=== PATIENT | female | born 1945 | race Caucasian/White ===

== ENCOUNTER 2017-11-16 07:58 | Day surgery (SDC) | payer OTHER, BC ==
[2017-11-14 16:37] VITALS: BMI 24.0
--- NOTE | 2017-11-16 08:42 | HP ---
Satellite [facility] - Chief Complaint Chief Complaint: right elbow pain, drainage - Past Medical History Allergies/Adverse Reactions: Allergies Allergy/AdvReac Type Severity Reaction Status Date / Time erythromycin base Allergy Verified 11/14/17 16:40 Sulfa (Sulfonamide Allergy Verified 11/14/17 16:40 Antibiotics) prednisolone AdvReac Verified 11/14/17 16:40 TOMATO Allergy Severe Swelling Uncoded 11/14/17 16:40 Cardiovascular: Yes: HTN Gastrointestinal: Yes: Diverticulosis Heme/Onc: Yes: Anemia Endocrine: Yes: Hypothyroidism (neck and back surgery with spinal fusion) - Current Medications Current Medications: Home Medications Medication Instructions Recorded Ascorbic Acid [Vitamin C] 500 mg PO DAILY 04/09/15 Ferric Sulfate 1 tab MC DAILY 04/09/15 Levothyroxine [Synthroid -] 75 mcg PO DAILY 04/09/15 Multivitamins [Multivit ([facility] 1 tab PO DAILY 04/09/15 Formulary)] Olmesartan Medoxomil [Benicar -] 20 mg PO DAILY 04/09/15 Ibuprofen [Advil -] 200 mg PO PRN PRN 06/17/16 Aspirin [Aspirin EC] 81 mg PO ASDIR 11/14/17 Hydrocodone/Acetaminophen [[place] 1 each PO Q6H PRN #20 tablet MDD 4 11/16/17 5-325 Tablet] Satellite Physical Exam - Physical Examination General Appearance: Well Nourished, Well Developed, Alert & Oriented x3 ENT: Clear Lung: Normal air movement Heart: Regular rate & rhythm Extremities: Other (right elbow- + olecranon bursitis with drainage (chronic), full rom, nvi) Neurological: Intact, Alert, Oriented Satellite Impression/Plan - Impression/Plan Impression: right olecranon bursitis- chronic Operative Procedure: right olecranon bursectomy Date to be Performed: 11/16/17
[2017-11-16] MEDS ORDERED: LIDOCAINE HCL/PF 2% SDV 5ML VIAL ONE (11:12)
[2017-11-16] MEDS ORDERED: PROPOFOL 20 ML ONE (11:12)
[2017-11-16] MEDS ORDERED: ceFAZolin SODIUM 1 GM VIAL ONE (11:14)
[2017-11-16] MEDS ORDERED: ONDANSETRON 4 MG/2 ML VIAL ONE (11:14)
[2017-11-16] MEDS ORDERED: ceFAZolin SODIUM 1 GM VIAL IVPB ONE (11:14)
[2017-11-16] MEDS ORDERED: SUCCINYLCHOLINE CHLORIDE 200 MG/10 ML VIAL ONE (11:30)
[2017-11-16] MEDS ORDERED: ePHEDrine SULFATE 50 MG/1 ML AMPULE ONE (11:34)
--- NOTE | 2017-11-16 11:52 | OP ---
Operative Note - Note: Operative Date: 11/16/17 ([facility]) Pre-Operative Diagnosis: right chronic infected olecranon bursa Operation: right olecranon bursectomy Post-Operative Diagnosis: Same as Pre-op Surgeon: Brown Chen Housekeeping Manager: Scooby Nelson Anesthesiologist/TECHNOLOGY ADMINISTRATOR: Solomon Salvador Anesthesia: General, Local Specimens Removed: bursa Estimated Blood Loss (mls): 0 (tourniquet) Operative Report Dictated: Yes
[2017-11-16] MEDS ORDERED: oxyCODONE HCL 5 MG TABLET PO PRN (11:56)
[2017-11-16] MEDS ORDERED: ONDANSETRON 4 MG/2 ML VIAL IVPUSH PRN (11:56)
[2017-11-16] MEDS ORDERED: LACTATED RINGERS SOLUTION 1,000 ML IV SCH (12:00)
--- NOTE | 2017-11-16 12:09 | OP ---
DATE OF OPERATION: PREOPERATIVE DIAGNOSIS: Right elbow chronic and infected left bursa sinus tract. POSTOPERATIVE DIAGNOSIS: Right elbow chronic and infected left bursa sinus tract. PROCEDURE: Right elbow olecranon bursectomy and sinus tract excision. SURGEON: Indy Menendez MD WAXING MACHINE OPERATOR HELPER: ANALISA Amaya ANESTHESIA: Tobi Salvador MD, deep MAC anesthesia with local injection of 10 mL of 0.5% Marcaine with lidocaine. DRAINS: None. COMPLICATIONS: None. SPECIMENS: Right olecranon bursa and sinus tract, right elbow. BLOOD LOSS: None. BLOOD GIVEN: None. FLUID REPLACEMENT: 500 mL. INDICATIONS: This patient is a 72-year-old female with a preoperative diagnosis of a right elbow chronically infected olecranon bursa and chronically draining sinus tract. After understanding the potential risks, complications, alternatives, benefits to surgery versus nonsurgical treatment, the patient elected to undergo this procedure. The patient does understand that there is a risk of the sinus tract returning and she will regrow her right elbow olecranon bursa. DESCRIPTION OF PROCEDURE: The patient was brought to the operating room. Peripheral IV place. IV sedation given. Then 1 g of IV Ancef given. The right upper extremity was prepped and draped in the usual sterile fashion. She was placed into the sloppy lateral position. The right upper extremity is elevated, exsanguinated with an Esmarch bandage. Tourniquet inflated to 250 mmHg. A longitudinal incision was marked out with a marking pen including making an oval-shaped incision around the chronically draining sinus tract. Then 10 mL of 0.5% Marcaine and 1% lidocaine was injected in and around the surgical incision. An incision was made with a No. 15 scalpel blade including taking out an ellipse of skin around the sinus tract. I traced the sinus tract down to the olecranon bursa. It was excised in its entirety (the sinus tract and the bursa). Circumferential dissection was done around the bursa doing a full bursectomy. There was no pus. Overall, it was underwhelming, but there was a bursa with chronic scar tissue. The area was copiously irrigated and washed out. The patient did not have a bony olecranon spur. There was no abnormal tissue that I could see. The tissue was irrigated and washed out again. Closure was done with 4-0 undyed Vicryl in the deep dermal layer, and final skin reapproximation was done with the saurabh. The olecranon bursa and the sinus tract was passed off the field as specimen. The area was then washed and dried. Gordon were applied. Xeroform gauze, 4 x 4's, Webril, and a posterior 5-inch Ortho-Glass splint was applied immobilizing the elbow. It was wrapped with a Andrew and Coban. Tourniquet was taken down after a total tourniquet time of 25 minutes. There were no complications during the case. The patient tolerated the procedure well and was brought to the ambulatory recovery room in stable condition. INDY MENENDEZ M.D. [id number]
[2017-11-16 12:43] VITALS: TEMP 98
[2017-11-16 14:55] VITALS: BP 114/66; PULSE 84
--- NOTE | 2017-11-17 16:09 | PATH ---
Surgical Pathology Report Patient Name: JULISSA CHAVIRA [facility]. Rec. #: [id number] /Age/Gender: 1945 (Age: 72) / F Account: [id number] Location: [facility] SURGICAL Taken: 11/15/2017 Received: 11/16/2017 Reported: 11/17/2017 Physicians: Brown Chen M.D. Specimen(s) Received INFECTED OLECRANON BURSA Clinical History Infected right olecranon bursa Final Diagnosis OLECRANON BURSA, EXCISION: BENIGN DENSE FIBROCONNECTIVE TISSUE WITH FOCAL CHRONIC INFLAMMATION AND DYSTROPHIC CALCIFICATION. Electronically Signed Annalise Harris M.D. Gross Description Received in formalin labeled "infected olecranon bursa," is a 3.2 x 2.2 x 0.3 cm aggregate of guadarrama-yellow, irregular soft tissue fragments. The specimen is entirely submitted in one cassette. 11/16/2017 [facility]
== END 2017-11-16 14:55 | disposition home or self-care (01) ==
LOC: JASU-SURG 07:58
PROVIDERS: ATTEND Orthopaedic Surgery
PROC: 0MB30ZZ Excision of Right Elbow Bursa and Ligament, Open Approach (ICD-10-PCS; principal; 2017-11-16 09:30)
DX: M71.121 Other infective bursitis, right elbow (principal)
CPT/HCPCS: 88304-TC; 94760

== ENCOUNTER 2018-01-04 05:03 | Day surgery (SDC) | payer OTHER, BC ==
[2017-12-29 13:55] VITALS: BMI 24.6
--- NOTE | 2018-01-04 09:02 | HP ---
Satellite [facility] - Chief Complaint Chief Complaint: recurrent infection right elbow and hand History of Present Illness: recurrent infection right elbow and hand History Source: Patient Limitations to Obtaining History: No Limitations - Past Medical History Allergies/Adverse Reactions: Allergies Allergy/AdvReac Type Severity Reaction Status Date / Time Sulfa (Sulfonamide Allergy Intermediate Rash Verified 01/02/18 18:39 Antibiotics) erythromycin base Allergy Unknown Verified 01/02/18 18:39 prednisolone AdvReac Intermediate Verified 01/02/18 18:39 TOMATO Allergy Severe Swelling Uncoded 01/02/18 18:39 Cardiovascular: Yes: HTN Gastrointestinal: Yes: Diverticulosis Heme/Onc: Yes: Anemia Endocrine: Yes: Hypothyroidism (neck and back surgery with spinal fusion) - Current Medications Current Medications: Home Medications Medication Instructions Recorded Ascorbic Acid [Vitamin C] 500 mg PO DAILY 04/09/15 Levothyroxine [Synthroid -] 75 mcg PO DAILY 04/09/15 Olmesartan Medoxomil [Benicar -] 20 mg PO DAILY 04/09/15 Ibuprofen [Advil -] 200 mg PO PRN PRN 06/17/16 Aspirin [Aspirin EC] 81 mg PO ASDIR 11/14/17 Ferrous Sulfate [Feosol] 325 mg PO DAILY 12/29/17 Lactobacillus Rhamnosus R0011 1 each PO DAILY 12/29/17 [Probiotic Digestive Care] Satellite Physical Exam - Physical Examination General Appearance: Well Nourished ENT: Clear Lung: Clear to auscultation Heart: Regular rate & rhythm Breasts: Soft Abdomen: Soft Extremities: No edema Satellite Impression/Plan - Impression/Plan Impression: recurrent infection right elbow and hand Operative Procedure: open I and D and wound closure right elbow and hand Date to be Performed: 01/04/18
[2018-01-04] MEDS ORDERED: ONDANSETRON 4 MG/2 ML VIAL IVPUSH PRN (09:12)
[2018-01-04] MEDS ORDERED: oxyCODONE HCL 5 MG TABLET PO PRN ×2 (09:12)
[2018-01-04] MEDS ORDERED: LACTATED RINGERS SOLUTION 1,000 ML IV SCH (09:15)
[2018-01-04] MEDS ORDERED: MIDAZOLAM HCL 2 MG/2 ML SINGLE DOSE VIAL ONE ×2 (10:02→11:18)
[2018-01-04] MEDS ORDERED: BUPIVACAINE HCL/PF 0.5% (5MG/ML) 10 ML VIAL ONE (11:28)
[2018-01-04] MEDS ORDERED: LIDOCAINE HCL 1%, 10 MG/ML (20ML VIAL) ONE (11:28)
[2018-01-04] MEDS ORDERED: ceFAZolin SODIUM 1 GM VIAL IVPB ONE (11:30)
[2018-01-04] MEDS ORDERED: BUPIVACAINE HCL/PF (5 MG/ML) 30 ML VIAL IJ ONE (11:35)
[2018-01-04] MEDS ORDERED: LIDOCAINE HCL 1%, 10 MG/ML (20ML VIAL) INF ONE (11:35)
[2018-01-04] MEDS ORDERED: BACITRACIN 50,000 UNITS VIAL IM ONE (11:47)
--- NOTE | 2018-01-04 12:34 | OP ---
Operative Note - Note: Operative Date: 01/04/18 Pre-Operative Diagnosis: right hand and elbow chronic infection, poor wound healing, right hand mass Operation: right hand excision of mass,hand open I & D, and elbow open I & D and elbow wound closure Post-Operative Diagnosis: Same as Pre-op Surgeon: Brown Chen Anesthesiologist/ROTOR WINDER: Zachary Brand Anesthesia: General, MAC Specimens Removed: right hand mass, soft tissue, and culture. right elbow soft tissue, and culture Estimated Blood Loss (mls): 0 Drains & Tubes with Location: 0 Drains, Volume Out (mls): 0 Blood Volume Replaced (mls): 0 Fluid Volume Replaced (mls): 500 Operative Report Dictated: Yes
[2018-01-04 12:54] VITALS: TEMP 97.4
--- NOTE | 2018-01-04 13:01 | OP ---
DATE OF OPERATION: 01/04/2018 PREOPERATIVE DIAGNOSIS: Right hand recurrent infection and right elbow recurrent infection and poor wound closure. POSTOPERATIVE DIAGNOSIS: Right hand recurrent infection and right elbow recurrent infection and poor wound closure. PROCEDURE: Right hand open incision and drainage and right elbow open incision and drainage and wound closure. SURGEON: Indy Menendez MD TREASURY ASSOCIATE: None. ANESTHESIA: Zachary Brand CRNA DRAINS: None. COMPLICATIONS: None. SPECIMENS: Times 4. 1. Right hand wound culture. 2. Right hand tissue sent for culture and pathology. 3. Right elbow wound culture. 4. Right elbow soft tissue sent for culture. INDICATIONS: This patient is a 72-year-old female with preoperative diagnosis of poor wound healing, chronic infection in the right hand, chronic elbow infection, and poor wound closure. The patient did tell me recently that she was told many years ago that she had a connective tissue disorder, but it was never fully diagnosed. It does not have a name. In addition, interestingly, the anesthesiologist told me during the case he had a very hard time finding a peripheral O2 saturation registration. He feels that she has very poor distal vascular supply. He had to use her ear in order to get any type of reading. DESCRIPTION OF PROCEDURE: The patient was brought to the operating room. Peripheral IV placed. IV sedation given. She was given 2 g of IV Ancef MAC anesthesia. The right upper extremity was prepped and draped in sterile fashion. Two incisions were marked out in the right hand 1st dorsal webspace and the right elbow with the previous incision and both were injected with about 5 mL of 0.5% Marcaine 1% lidocaine mixture. The right upper extremity was then elevated and exsanguinated with Esmarch bandage and tourniquet inflated to 250 mmHg. First, we started with the hand. I made an incision over this recurrent infection and mass. Part of the skin was just falling apart. There was a soft tissue mass. It looked fibrinous. It was excised in its entirety using a fresh No. 15 scalpel blade and curved iris scissors, although I took great care to avoid any crossing neurovascular structures, and I did not visualize any going directly to this mass. It was right in the area of the ulnar neurovascular bundle of the right thumb 1st dorsal webspace. There was no pus. There was no fluid. The area was copiously irrigated and washed out with 50 mL of sterile saline with 50,000 units of bacitracin in the L of saline. I then closed the skin with 4-0 nylon sutures. There was an area going more into her palm that simply tore. She obviously has very weak skin. That was also closed with 4-0 horizontal mattress nylon sutures. Next, our attention turned to the elbow. An incision was made through the previous incision. There was no pus. There was no abscess or fluid collection. There was no drainage whatsoever just was mildly open over the olecranon. There was no pointy aspect of the olecranon or prominence to shave down. The area was freed of some surrounding scar tissue in order to be able to close the flaps, and the soft tissue that had formed in the wound preventing wound closure was scraped out with both No. 15 scalpel blade and a curette. I scraped the bone a bit and the surrounding soft tissues. The area was copiously irrigated and washed out with 100 mL of sterile saline with bacitracin. I then did a primary closure with horizontal mattress 3-0 nylon sutures. Both of the areas looked good at the end. They were washed, dried, covered with Xeroform, 4 x 4's, gauze, Webril, and a posterior Ortho-Glass splint was applied with the elbow held in a position of 80 degrees of flexion as not to put tension on the posterior olecranon incision. It was then wrapped with 2 Sky bandages. Tourniquet was taken down after total tourniquet time of about 35 minutes. There were no complications during the case. The patient tolerated the procedure quite well and was brought to the ambulatory recovery room in stable condition. INDY MENENDEZ M.D. [id number]
--- NOTE | 2018-01-04 13:03 | OP ---
DATE OF OPERATION: 01/04/2018 ADDENDUM PROCEDURE: 1. Right hand mass excision. 2. Right hand open incision and drainage. 3. Right elbow open incision and drainage. 4. Right elbow wound closure. In the area of the 1st dorsal webspace there was a fibrinous soft tissue mass. It was about 1 cm long x 0.5 cm wide. It was well circumscribed, seemed to be fibrotic in nature, and it was excised in its entirety. INDY MENENDEZ M.D. [id number]
[2018-01-04 15:58] VITALS: BP 124/72; PULSE 68
--- NOTE | 2018-01-05 14:57 | PATH ---
Surgical Pathology Report Patient Name: JULISSA CHAVIRA [facility]. Rec. #: [id number] /Age/Gender: 1945 (Age: 72) / F Account: [id number] Location: [facility] SURGICAL Taken: 01/04/2018 Received: 01/04/2018 Reported: 01/05/2018 Physicians: Brown Chen M.D. Specimen(s) Received DEBRIDEMENT TISSUE RIGHT HAND Clinical History Infection right hand and right elbow Final Diagnosis HAND, RIGHT, DEBRIDEMENT: FIBROADIPOSE TISSUE WITH MILD CHRONIC INFLAMMATION, MILD FOCAL HISTIOCYTIC PROLIFERATION, AND REACTIVE CHANGES. Fragments OF skeletal muscle and dense fibroconnective tissue. Electronically Signed Annalise Harris M.D. Gross Description Received in formalin labeled "debrided tissue right hand," are 2 guadarrama soft tissue fragments measuring 0.5 and 1.0 cm in greatest dimension. The specimens are submitted Toto one cassette. /01/04/2018 [place]udi01/04/2018
== END 2018-01-04 14:00 | disposition home or self-care (01) ==
LOC: JASU-SURG 05:03
PROVIDERS: ATTEND Orthopaedic Surgery
PROC: 0JDG0ZZ Extraction of Right Lower Arm Subcutaneous Tissue and Fascia, Open Approach (ICD-10-PCS; 2018-01-04)
PROC: 0KB70ZZ Excision of Right Upper Arm Muscle, Open Approach (ICD-10-PCS; 2018-01-04)
PROC: 0JBJ0ZZ Excision of Right Hand Subcutaneous Tissue and Fascia, Open Approach (ICD-10-PCS; principal; 2018-01-04 10:30)
DX: D21.11 Benign neoplasm of connective and other soft tissue of right upper limb, including shoulder (principal); S51.001A Unspecified open wound of right elbow, initial encounter; L08.9 Local infection of the skin and subcutaneous tissue, unspecified; Y99.9 Unspecified external cause status
CPT/HCPCS: 87070; 87075; 87186; 87205; 88304-TC

== ENCOUNTER 2018-04-13 07:42 | Day surgery (SDC) | payer OTHER, BC ==
[2018-04-12 12:38] VITALS: BMI 24.4
[2018-04-13 09:57] VITALS: TEMP 97.6
[2018-04-13 13:15] VITALS: BP 132/66; PULSE 69
--- NOTE | 2018-04-16 16:58 | PATH ---
Surgical Pathology Report Patient Name: JULISSA CHAVIRA [facility]. Rec. #: [id number] /Age/Gender: 1945 (Age: 72) / F Account: [id number] Location: [facility]-ENDOSCOPY Taken: 04/13/2018 Received: 04/13/2018 Reported: 04/16/2018 Physicians: Ly Gutierrez M.D. Specimen(s) Received A: BX SECOND PORTION DUODENUM & DUODENAL BULB B: BX GASTRIC ANTRUM C: PROXIMAL TRANSVERSE COLON POLYP D: BX LIPOMA RIGHT COLON Clinical History Weight loss, anemia, history of colon polyps Postoperative diagnosis: Erosive and atrophic gastritis, colon polyp (proximal transverse colon), lipoma right colon, diverticulosis Final Diagnosis A. DUODENUM, SECOND PORTION AND DUODENAL BULB, BIOPSY: DUODENAL MUCOSA WITH MODERATE ACUTE AND CHRONIC DUODENITIS. B. STOMACH, ANTRUM, BIOPSY: GASTRIC ANTRAL MUCOSA WITH MILD CHRONIC GASTRITIS. IMMUNOHISTOCHEMICAL STAIN FOR H. PYLORI IS NEGATIVE. C. PROXIMAL TRANSVERSE COLON, POLYP, POLYPECTOMY: HYPERPLASTIC POLYP. D. COLON, RIGHT, LIPOMA, BIOPSY: MATURE ADIPOSE TISSUE CONSISTENT WITH SUBMUCOSAL LIPOMA HYPERPLASTIC POLYP(S). Electronically Signed Annalise Harris M.D. Gross Description A. Received in formalin, labeled "second portion duodenum and duodenal bulb" are 4 guadarrama, irregular portions of soft tissue measuring 0.1 and 0.2 cm. in greatest dimension. The specimens are submitted in toto in one cassette. B. Received in formalin, labeled "antrum" are 3 guadarrama, irregular portions of soft tissue ranging in size from 0.1-0.3 cm. in greatest dimension. The specimens are submitted in toto in one cassette. C. Received in formalin, labeled "proximal transverse colon polyp" are 3 guadarrama, irregular portions of soft tissue ranging in size from 0.1-0.4 cm. in greatest dimension. The specimens are submitted in toto in one cassette. D. Received in formalin, labeled "lipoma" are 3 guadarrama, irregular portions of soft tissue measuring 0.2 cm. in greatest dimension. The specimens are submitted in toto in one cassette. MLSZ/04/13/2018 sanml/04/13/2018
== END 2018-04-13 11:20 | disposition home or self-care (01) ==
LOC: JASU-ENDO 07:42
PROVIDERS: ATTEND Internal Medicine Gastroenterology
PROC: 0DBK8ZX Excision of Ascending Colon, Via Natural or Artificial Opening Endoscopic, Diagnostic (ICD-10-PCS; 2018-04-13)
PROC: 0DB98ZX Excision of Duodenum, Via Natural or Artificial Opening Endoscopic, Diagnostic (ICD-10-PCS; 2018-04-13)
PROC: 0DB68ZX Excision of Stomach, Via Natural or Artificial Opening Endoscopic, Diagnostic (ICD-10-PCS; 2018-04-13)
PROC: 0DBL8ZX Excision of Transverse Colon, Via Natural or Artificial Opening Endoscopic, Diagnostic (ICD-10-PCS; principal; 2018-04-13 10:00)
DX: D64.9 Anemia, unspecified (principal); R63.4 Abnormal weight loss; Z86.010 Personal history of colon polyps; K57.30 Diverticulosis of large intestine without perforation or abscess without bleeding; K63.5 Polyp of colon; K25.9 Gastric ulcer, unspecified as acute or chronic, without hemorrhage or perforation
CPT/HCPCS: 88304-TC; 88305-TC; 88342-TC

== ENCOUNTER 2020-01-22 08:49 | Day surgery (SDC) | payer OTHER, BC ==
[2020-01-16 14:09] VITALS: BMI 21.7
[2020-01-22 10:59] VITALS: TEMP 97.5
[2020-01-22 11:46] VITALS: BP 132/61; PULSE 62
== END 2020-01-22 12:05 | disposition home or self-care (01) ==
LOC: JASU-ENDO 08:49
PROVIDERS: ATTEND Internal Medicine Gastroenterology
PROC: 0DJ08ZZ Inspection of Upper Intestinal Tract, Via Natural or Artificial Opening Endoscopic (ICD-10-PCS; principal; 2020-01-22 10:00)
DX: R63.4 Abnormal weight loss (principal); K44.9 Diaphragmatic hernia without obstruction or gangrene

== ENCOUNTER 2021-02-24 04:56 | Day surgery (SDC) | payer OTHER, BC ==
[2021-02-23 13:32] VITALS: BMI 22.5
[2021-02-24] MEDS ORDERED: MIDAZOLAM HCL 2 MG/2 ML SINGLE DOSE VIAL ONE (09:48)
[2021-02-24] MEDS ORDERED: PROPOFOL 20 ML ONE ×2 (09:48)
[2021-02-24] MEDS ORDERED: ceFAZolin SODIUM 1 GM VIAL IVPB ONE (10:25)
[2021-02-24] MEDS ORDERED: BUPIVACAINE HCL/PF 0.5% (5MG/ML) 10 ML VIAL IJ ONE (10:31)
[2021-02-24] MEDS ORDERED: LIDOCAINE HCL 1%, 10 MG/ML (20ML VIAL) NR ONE (10:31)
[2021-02-24] MEDS ORDERED: KETOROLAC TROMETHAMINE 30 MG/1 ML VIAL ONE (10:52)
[2021-02-24 11:28] VITALS: PULSE 68; TEMP 97.7
[2021-02-24 13:38] VITALS: BP 131/74
== END 2021-02-24 14:00 | disposition home or self-care (01) ==
LOC: JASU-SURG 04:56
PROVIDERS: ATTEND Podiatrist Foot & Ankle Surgery
PROC: 0SRP0JZ Replacement of Right Toe Phalangeal Joint with Synthetic Substitute, Open Approach (ICD-10-PCS; principal; 2021-02-24 09:00)
DX: M20.41 Other hammer toe(s) (acquired), right foot (principal)
CPT/HCPCS: 73630-TC-RT-FY

== ENCOUNTER 2021-05-21 12:51 | Observation (INO) | payer OTHER, BC ==
[2021-05-21] MEDS ORDERED: METOPROLOL TARTRATE 5 MG/5 ML VIAL IVPUSH ONE (13:27)
[2021-05-21] MEDS ORDERED: metoPROLOL SUCCINATE 25 MG TAB.SR.24H (FP) PO ONE (13:27)
[2021-05-21] MEDS ORDERED: METOPROLOL TARTRATE 5 MG/5 ML VIAL ONE (13:40)
[2021-05-21] MEDS ORDERED: metoPROLOL SUCCINATE 25 MG TAB.SR.24H (FP) ONE (13:40)
[2021-05-21 14:05] LABS: BASO % 0.7 % (0-2.0); HEMATOCRIT 33.3 % (32.4-45.2); HEMOGLOBIN 11.2 GM/dL (10.7-15.3); LYMPH % 23.4 % (8-40); MCHC 33.7 g/dl (32.0-36.0); MEAN CELL VOLUME 92.2 fl (80-96); MEAN PLT VOLUME 10.3 fl (7.5-11.1); NEUT % 62.9 % (42.8-82.8); PLATELET COUNT 206 10^3/uL (134-434); RBC 3.62 M/mm3 (3.60-5.2); RDW 13.6 % (11.6-15.6); WHITE BLOOD COUNT 6.2 K/mm3 (4.0-10.0)
[2021-05-21 14:12] LABS: INR 1.04 (0.83-1.09); PROTHROMBIN TIME (PATIENT) 12.2 SEC (9.7-13.0)
[2021-05-21 14:15] LABS: ACTIVATED PTT 26.7 SECONDS (25.2-36.5)
[2021-05-21 14:23] LABS: CHLORIDE 103 mmol/L (98-107); SODIUM 133 mmol/L (136-145)
[2021-05-21 14:29] LABS: ALBUMIN 3.4 g/dl (3.4-5.0); ANION GAP 7 MMOL/L (8-16); BLOOD UREA NITROGEN 23.6 mg/dL (7-18); CO2 24 mmol/L (21-32); GLUCOSE,RANDOM 92 mg/dL (74-106); MAGNESIUM 2.1 mg/dL (1.8-2.4)
[2021-05-21 14:31] LABS: CREATININE 1.1 mg/dL (0.55-1.3); SGOT/AST 24 U/L (15-37); SGPT/ALT 15 U/L (13-61)
[2021-05-21 14:33] LABS: BILIRUBIN,TOTAL 0.4 mg/dL (0.2-1); TOT PROT 7.7 g/dl (6.4-8.2)
[2021-05-21 14:34] LABS: ALK PHOS 65 U/L (45-117)
[2021-05-21 20:21] LABS: EPI CELLS 3 /uL (0-25.1); HYALINE CASTS 0 /uL (0-3.1); PH,URINE 6.5 (5.0-8.0); URINE APPEARANCE CLEAR; URINE BACTERIA 15 /uL (0-1359); URINE BILIRUBIN NEGATIVE (NEGATIVE); URINE COLOR YELLOW; URINE GLUCOSE (UA) NEGATIVE (NEGATIVE); URINE KETONE NEGATIVE (NEGATIVE); URINE LEUK ESTERASE 1+ (NEGATIVE); URINE NITRITE NEGATIVE (NEGATIVE); URINE PROTEIN NEGATIVE (NEGATIVE); URINE RBC 0 /uL (0-23.9); URINE UROBILINOGEN 0.2 mg/dL (0.2-1.0); URINE WBC 7 /uL (0-25.8)
[2021-05-21] MEDS ORDERED: FAMOTIDINE 20 MG TABLET PO SCH (22:00)
[2021-05-21] MEDS: APIXABAN 5 MG TABLET PO SCH (22:02)
[2021-05-22 02:25] VITALS: BMI 22.8
[2021-05-22 07:00] LABS: BASO % 0.8 % (0-2.0); EOS % 2.4 % (0-4.5); HEMATOCRIT 30.4 % (32.4-45.2); HEMOGLOBIN 10.4 GM/dL (10.7-15.3); LYMPH % 41.2 % (8-40); MCH 31.1 pg (25.7-33.7); MCHC 34.2 g/dl (32.0-36.0); MEAN CELL VOLUME 91.1 fl (80-96); MEAN PLT VOLUME 10.2 fl (7.5-11.1); MONO % 14.6 % (3.8-10.2); PLATELET COUNT 190 10^3/uL (134-434); RBC 3.33 M/mm3 (3.60-5.2); RDW 13.7 % (11.6-15.6)
[2021-05-22] MEDS ORDERED: LEVOTHYROXINE NA 75 MCG TABLET (FP) PO SCH (07:00)
[2021-05-22 07:16] LABS: CALCIUM 8.9 mg/dL (8.5-10.1)
[2021-05-22 07:17] LABS: ALBUMIN 3.5 g/dl (3.4-5.0)
[2021-05-22 07:20] LABS: CREATININE 1.3 mg/dL (0.55-1.3); MAGNESIUM 2.1 mg/dL (1.8-2.4)
[2021-05-22 07:22] LABS: BILIRUBIN,TOTAL 0.3 mg/dL (0.2-1); TOT PROT 7.5 g/dl (6.4-8.2)
[2021-05-22] MEDS ORDERED: LOSARTAN POTASSIUM 50 MG TABLET PO SCH (10:00)
[2021-05-22] MEDS ORDERED: metoPROLOL SUCCINATE 25 MG TAB.SR.24H (FP) PO SCH (10:00)
[2021-05-22] MEDS ORDERED: FAMOTIDINE 20 MG TABLET PO SCH (10:00)
[2021-05-22] MEDS: APIXABAN 5 MG TABLET PO SCH (13:38)
[2021-05-22 14:05] VITALS: BP 112/65; PULSE 69; TEMP 97.8
== END 2021-05-22 16:09 | disposition home or self-care (01) ==
LOC: JER 12:51 → JERBED 13:27 → UNDOADMOB 13:27 → INTOOBSV 13:27 → JERBED 16:40 → J4S 21:24
PROVIDERS: ADMIT Family Medicine; ATTEND Family Medicine
PROC: 3E033GC Introduction of Other Therapeutic Substance into Peripheral Vein, Percutaneous Approach (ICD-10-PCS; principal; 2021-05-21)
DX: I48.91 Unspecified atrial fibrillation (principal); I10 Essential (primary) hypertension; E03.9 Hypothyroidism, unspecified; M81.0 Age-related osteoporosis without current pathological fracture; K21.9 Gastro-esophageal reflux disease without esophagitis; I35.0 Nonrheumatic aortic (valve) stenosis; E53.8 Deficiency of other specified B group vitamins; Z29.9 Encounter for prophylactic measures, unspecified; Z88.8 Allergy status to other drugs, medicaments and biological substances; Z88.2 Allergy status to sulfonamides
CPT/HCPCS: 36415; 71045-TC-FY; 80053; 81003; 83735; 84439; 84443; 84481; 84484; 85025; 85610; 85730; 93005; 93010; 96374; 99285-25; C9803; G0378; U0003; U0005

== ENCOUNTER 2021-07-16 17:09 | Inpatient (IN) | payer OTHER, BC ==
[2021-07-16] MEDS ORDERED: ACETAMINOPHEN 1000 MG/100 ML BAG IVPB ONE (18:45)
[2021-07-16] MEDS ORDERED: SODIUM CHLORIDE 0.9% 500 ML INFUS.BAG IV ONE (18:45)
[2021-07-16] MEDS ORDERED: ACETAMINOPHEN INJECTION 100 ML IVPB ONE (20:00)
[2021-07-16 20:08] LABS: BASO % 0.6 % (0-2.0); EOS % 0.2 % (0-4.5); HEMATOCRIT 19.1 % (32.4-45.2); LYMPH % 29.3 % (8-40); MCH 30.6 pg (25.7-33.7); MEAN CELL VOLUME 92.5 fl (80-96); MEAN PLT VOLUME 9.6 fl (7.5-11.1); MONO % 7.2 % (3.8-10.2); NEUT % 62.7 % (42.8-82.8); PLATELET COUNT 215 10^3/uL (134-434); RBC 2.06 M/mm3 (3.60-5.2); RDW 14.4 % (11.6-15.6); WHITE BLOOD COUNT 5.2 K/mm3 (4.0-10.0)
[2021-07-16 20:16] LABS: HEMOGLOBIN 6.3 GM/dL (10.7-15.3)
[2021-07-16 20:23] LABS: CHLORIDE 106 mmol/L (98-107); SODIUM 134 mmol/L (136-145)
[2021-07-16 20:24] LABS: INR 2.11 (0.83-1.09); PROTHROMBIN TIME (PATIENT) 23.8 SEC (9.7-13.0)
[2021-07-16 20:25] LABS: ALBUMIN 3.4 g/dl (3.4-5.0); CALCIUM 8.9 mg/dL (8.5-10.1)
[2021-07-16 20:26] LABS: ANION GAP 9 MMOL/L (8-16); BLOOD UREA NITROGEN 33.2 mg/dL (7-18); CO2 20 mmol/L (21-32); GLUCOSE,RANDOM 82 mg/dL (74-106)
[2021-07-16 20:28] LABS: CREATININE 1.3 mg/dL (0.55-1.3)
[2021-07-16 20:29] LABS: SGOT/AST 22 U/L (15-37); SGPT/ALT 14 U/L (13-61)
[2021-07-16 20:30] LABS: BILIRUBIN,TOTAL 0.3 mg/dL (0.2-1); TOT PROT 6.9 g/dl (6.4-8.2)
[2021-07-16 20:32] LABS: ALK PHOS 60 U/L (45-117)
[2021-07-16 20:45] LABS: LACTIC ACID 2.1 mmol/L (0.4-2.0)
[2021-07-16] MEDS ORDERED: POLYETHYLENE GLYCOL (HEALTHYLAX) 3350 17 GM PACKET PO PRN (23:25)
[2021-07-17] MEDS ORDERED: ACETAMINOPHEN 1000 MG/100 ML BAG IVPB PRN (02:00)
[2021-07-17 03:46] LABS: ALBUMIN 2.8 g/dl (3.4-5.0); BLOOD UREA NITROGEN 32.6 mg/dL (7-18); CALCIUM 8.4 mg/dL (8.5-10.1)
[2021-07-17 03:49] LABS: CREATININE 1.4 mg/dL (0.55-1.3)
[2021-07-17 03:51] LABS: BILIRUBIN,TOTAL 0.7 mg/dL (0.2-1); TOT PROT 6.1 g/dl (6.4-8.2)
[2021-07-17 05:44] LABS: BASO % 0.7 % (0-2.0); HEMATOCRIT 22.8 % (32.4-45.2); HEMOGLOBIN 7.4 GM/dL (10.7-15.3); LYMPH % 39.6 % (8-40); MCH 28.9 pg (25.7-33.7); MCHC 32.6 g/dl (32.0-36.0); MEAN CELL VOLUME 88.6 fl (80-96); MEAN PLT VOLUME 10.1 fl (7.5-11.1); NEUT % 47.7 % (42.8-82.8); PLATELET COUNT 178 10^3/uL (134-434); RBC 2.57 M/mm3 (3.60-5.2); WHITE BLOOD COUNT 4.3 K/mm3 (4.0-10.0)
[2021-07-17 05:57] LABS: INR 2.07 (0.83-1.09); PROTHROMBIN TIME (PATIENT) 23.3 SEC (9.7-13.0)
[2021-07-17] MEDS: LEVOTHYROXINE NA 75 MCG TABLET (FP) PO SCH (06:04)
[2021-07-17 06:06] LABS: CALCIUM 8.2 mg/dL (8.5-10.1)
[2021-07-17 06:07] LABS: BLOOD UREA NITROGEN 33.4 mg/dL (7-18)
[2021-07-17 06:10] LABS: CREATININE 1.3 mg/dL (0.55-1.3)
[2021-07-17] MEDS ORDERED: PT OWN MED DRAWER 7, Y5N ONE (09:30)
[2021-07-17] MEDS: LOSARTAN POTASSIUM 50 MG TABLET PO SCH (09:34)
[2021-07-17] MEDS: CALCIUM 500MG/VIT-D 200 UNITS COMBO TABLET (FP) PO SCH (09:35)
[2021-07-17] MEDS: FAMOTIDINE 20 MG TABLET PO SCH (09:35)
[2021-07-17] MEDS: metoPROLOL SUCCINATE 25 MG TAB.SR.24H (FP) PO SCH (09:35)
[2021-07-17] MEDS: CYANOCOBALAMIN 1,000 MCG TABLET (FP) PO SCH (09:35)
[2021-07-17] MEDS: PANTOPRAZOLE SODIUM 40 MG VIAL IVPUSH SCH (13:49)
[2021-07-18] MEDS: LEVOTHYROXINE NA 75 MCG TABLET (FP) PO SCH (06:17)
[2021-07-18 09:03] LABS: HEMATOCRIT 26.8 % (32.4-45.2); HEMOGLOBIN 8.9 GM/dL (10.7-15.3); MCH 29.4 pg (25.7-33.7); MCHC 33.3 g/dl (32.0-36.0); MEAN CELL VOLUME 88.3 fl (80-96); MEAN PLT VOLUME 9.8 fl (7.5-11.1); PLATELET COUNT 181 10^3/uL (134-434); RBC 3.03 M/mm3 (3.60-5.2); RDW 15.6 % (11.6-15.6)
[2021-07-18 09:10] LABS: INR 1.34 (0.83-1.09); PROTHROMBIN TIME (PATIENT) 15.1 SEC (9.7-13.0)
[2021-07-18 09:19] LABS: CALCIUM 8.6 mg/dL (8.5-10.1)
[2021-07-18 09:20] LABS: ALBUMIN 2.9 g/dl (3.4-5.0); BLOOD UREA NITROGEN 31.4 mg/dL (7-18); MAGNESIUM 2.2 mg/dL (1.8-2.4)
[2021-07-18 09:23] LABS: CREATININE 1.4 mg/dL (0.55-1.3)
[2021-07-18 09:24] LABS: BILIRUBIN,TOTAL 1.1 mg/dL (0.2-1); TOT PROT 6.2 g/dl (6.4-8.2)
[2021-07-18] MEDS ORDERED: PT OWN MED DRAWER 7, Y5N ONE (09:50)
[2021-07-18] MEDS: FAMOTIDINE 20 MG TABLET PO SCH (10:06)
[2021-07-18] MEDS: CYANOCOBALAMIN 1,000 MCG TABLET (FP) PO SCH (10:06)
[2021-07-18] MEDS: LOSARTAN POTASSIUM 50 MG TABLET PO SCH (10:06)
[2021-07-18] MEDS: CALCIUM 500MG/VIT-D 200 UNITS COMBO TABLET (FP) PO SCH (10:06)
[2021-07-18] MEDS: metoPROLOL SUCCINATE 25 MG TAB.SR.24H (FP) PO SCH (10:06)
[2021-07-18] MEDS: PANTOPRAZOLE SODIUM 40 MG VIAL IVPUSH SCH (10:09)
[2021-07-18] MEDS: SODIUM BICARBONATE 650 MG TABLET PO SCH (15:27)
[2021-07-19] MEDS: LEVOTHYROXINE NA 75 MCG TABLET (FP) PO SCH (06:05)
[2021-07-19 10:11] LABS: HEMATOCRIT 24.9 % (32.4-45.2); HEMOGLOBIN 8.4 GM/dL (10.7-15.3); MCH 29.9 pg (25.7-33.7); MCHC 33.7 g/dl (32.0-36.0); MEAN CELL VOLUME 88.8 fl (80-96); MEAN PLT VOLUME 9.8 fl (7.5-11.1); PLATELET COUNT 188 10^3/uL (134-434); RDW 15.8 % (11.6-15.6); WHITE BLOOD COUNT 6.8 K/mm3 (4.0-10.0)
[2021-07-19] MEDS: CYANOCOBALAMIN 1,000 MCG TABLET (FP) PO SCH (10:21)
[2021-07-19] MEDS: PANTOPRAZOLE SODIUM 40 MG VIAL IVPUSH SCH (10:22)
[2021-07-19] MEDS: CALCIUM 500MG/VIT-D 200 UNITS COMBO TABLET (FP) PO SCH (10:22)
[2021-07-19] MEDS: metoPROLOL SUCCINATE 25 MG TAB.SR.24H (FP) PO SCH (10:22)
[2021-07-19] MEDS: FAMOTIDINE 20 MG TABLET PO SCH (10:22)
[2021-07-19] MEDS: SODIUM BICARBONATE 650 MG TABLET PO SCH ×2 (10:22→21:24)
[2021-07-19 10:24] LABS: CALCIUM 8.3 mg/dL (8.5-10.1)
[2021-07-19 10:25] LABS: ALBUMIN 2.8 g/dl (3.4-5.0); MAGNESIUM 2.2 mg/dL (1.8-2.4)
[2021-07-19 10:28] LABS: CREATININE 1.4 mg/dL (0.55-1.3)
[2021-07-19 10:29] LABS: BILIRUBIN,TOTAL 0.7 mg/dL (0.2-1); TOT PROT 6.2 g/dl (6.4-8.2)
[2021-07-20] MEDS: LEVOTHYROXINE NA 75 MCG TABLET (FP) PO SCH (06:11)
[2021-07-20 09:34] LABS: HEMOGLOBIN 9.1 GM/dL (10.7-15.3); MCH 30.4 pg (25.7-33.7); MCHC 33.7 g/dl (32.0-36.0); MEAN CELL VOLUME 90.1 fl (80-96); MEAN PLT VOLUME 9.7 fl (7.5-11.1); PLATELET COUNT 240 10^3/uL (134-434); RDW 15.8 % (11.6-15.6); WHITE BLOOD COUNT 8.2 K/mm3 (4.0-10.0)
[2021-07-20] MEDS: metoPROLOL SUCCINATE 25 MG TAB.SR.24H (FP) PO SCH (10:03)
[2021-07-20] MEDS: CALCIUM 500MG/VIT-D 200 UNITS COMBO TABLET (FP) PO SCH (10:03)
[2021-07-20] MEDS: SODIUM BICARBONATE 650 MG TABLET PO SCH ×2 (10:03→21:59)
[2021-07-20] MEDS: FAMOTIDINE 20 MG TABLET PO SCH (10:03)
[2021-07-20] MEDS: PANTOPRAZOLE SODIUM 40 MG VIAL IVPUSH SCH (10:03)
[2021-07-20 10:07] LABS: BLOOD UREA NITROGEN 28.9 mg/dL (7-18)
[2021-07-20 10:14] LABS: CALCIUM 8.6 mg/dL (8.5-10.1); MAGNESIUM 2.4 mg/dL (1.8-2.4)
[2021-07-20 10:17] LABS: CREATININE 1.4 mg/dL (0.55-1.3)
[2021-07-21] MEDS: LEVOTHYROXINE NA 75 MCG TABLET (FP) PO SCH (06:15)
[2021-07-21] MEDS: FAMOTIDINE 20 MG TABLET PO SCH (09:39)
[2021-07-21] MEDS: metoPROLOL SUCCINATE 25 MG TAB.SR.24H (FP) PO SCH (09:39)
[2021-07-21] MEDS: SODIUM BICARBONATE 650 MG TABLET PO SCH ×2 (09:39→21:40)
[2021-07-21] MEDS: CALCIUM 500MG/VIT-D 200 UNITS COMBO TABLET (FP) PO SCH (09:40)
[2021-07-21] MEDS: PANTOPRAZOLE SODIUM 40 MG VIAL IVPUSH SCH (09:40)
[2021-07-21 10:51] LABS: PHOSPHOROUS 3.4 mg/dL (2.5-4.9)
[2021-07-22] MEDS: LEVOTHYROXINE NA 75 MCG TABLET (FP) PO SCH (06:36)
[2021-07-22 10:23] LABS: CALCIUM 7.9 mg/dL (8.5-10.1)
[2021-07-22 10:24] LABS: BLOOD UREA NITROGEN 19.4 mg/dL (7-18)
[2021-07-22 10:27] LABS: CREATININE 1.2 mg/dL (0.55-1.3)
[2021-07-22] MEDS: CALCIUM 500MG/VIT-D 200 UNITS COMBO TABLET (FP) PO SCH (10:34)
[2021-07-22] MEDS: metoPROLOL SUCCINATE 25 MG TAB.SR.24H (FP) PO SCH (10:35)
[2021-07-22] MEDS: PANTOPRAZOLE SODIUM 40 MG VIAL IVPUSH SCH (10:35)
[2021-07-22] MEDS: FAMOTIDINE 20 MG TABLET PO SCH (10:35)
[2021-07-22] MEDS: SODIUM BICARBONATE 650 MG TABLET PO SCH ×2 (10:35→21:28)
[2021-07-22 12:15] VITALS: BMI 21.6
[2021-07-23] MEDS: LEVOTHYROXINE NA 75 MCG TABLET (FP) PO SCH (06:06)
[2021-07-23 09:36] LABS: BASO % 0.5 % (0-2.0); EOS % 1.5 % (0-4.5); HEMATOCRIT 23.6 % (32.4-45.2); HEMOGLOBIN 7.8 GM/dL (10.7-15.3); LYMPH % 25.7 % (8-40); MCH 30.5 pg (25.7-33.7); MCHC 33.2 g/dl (32.0-36.0); MEAN CELL VOLUME 91.8 fl (80-96); MEAN PLT VOLUME 9.8 fl (7.5-11.1); MONO % 9.2 % (3.8-10.2); NEUT % 63.1 % (42.8-82.8); PLATELET COUNT 218 10^3/uL (134-434); RBC 2.57 M/mm3 (3.60-5.2); RDW 16.1 % (11.6-15.6); WHITE BLOOD COUNT 4.6 K/mm3 (4.0-10.0)
[2021-07-23 09:55] LABS: CALCIUM 7.7 mg/dL (8.5-10.1)
[2021-07-23 09:56] LABS: ALBUMIN 2.9 g/dl (3.4-5.0); BLOOD UREA NITROGEN 14.8 mg/dL (7-18)
[2021-07-23 10:03] LABS: BILIRUBIN,TOTAL 0.4 mg/dL (0.2-1); TOT PROT 6.1 g/dl (6.4-8.2)
[2021-07-23] MEDS ORDERED: PT OWN MED DRAWER 7, Y5N ONE (11:18)
[2021-07-23] MEDS: CALCIUM 500MG/VIT-D 200 UNITS COMBO TABLET (FP) PO SCH (11:22)
[2021-07-23] MEDS: SODIUM BICARBONATE 650 MG TABLET PO SCH ×2 (11:23→21:02)
[2021-07-23] MEDS: CYANOCOBALAMIN 1,000 MCG TABLET (FP) PO SCH (11:23)
[2021-07-23] MEDS: FAMOTIDINE 20 MG TABLET PO SCH (11:23)
[2021-07-23] MEDS: metoPROLOL SUCCINATE 25 MG TAB.SR.24H (FP) PO SCH (11:23)
[2021-07-23] MEDS: PANTOPRAZOLE SODIUM 40 MG VIAL IVPUSH SCH (11:24)
[2021-07-23] MEDS: ACETAMINOPHEN 325 MG TABLET (FP) PO PRN (23:18)
[2021-07-24] MEDS: LEVOTHYROXINE NA 75 MCG TABLET (FP) PO SCH (06:02)
[2021-07-24] MEDS: CALCIUM 500MG/VIT-D 200 UNITS COMBO TABLET (FP) PO SCH (10:52)
[2021-07-24] MEDS: SODIUM BICARBONATE 650 MG TABLET PO SCH ×2 (10:52→21:23)
[2021-07-24] MEDS: metoPROLOL SUCCINATE 25 MG TAB.SR.24H (FP) PO SCH (10:52)
[2021-07-24] MEDS: FAMOTIDINE 20 MG TABLET PO SCH (10:52)
[2021-07-24] MEDS: PANTOPRAZOLE SODIUM 40 MG VIAL IVPUSH SCH (10:52)
[2021-07-24] MEDS: PANTOPRAZOLE 40 MG TABLET PO SCH (12:35)
[2021-07-24 16:18] LABS: BASO % 0.4 % (0-2.0); EOS % 0.6 % (0-4.5); HEMATOCRIT 27.9 % (32.4-45.2); HEMOGLOBIN 9.4 GM/dL (10.7-15.3); LYMPH % 29.9 % (8-40); MCH 30.2 pg (25.7-33.7); MCHC 33.7 g/dl (32.0-36.0); MEAN CELL VOLUME 89.7 fl (80-96); MEAN PLT VOLUME 9.9 fl (7.5-11.1); MONO % 8.5 % (3.8-10.2); NEUT % 60.6 % (42.8-82.8); PLATELET COUNT 265 10^3/uL (134-434); RBC 3.12 M/mm3 (3.60-5.2); RDW 16.4 % (11.6-15.6); WHITE BLOOD COUNT 6.4 K/mm3 (4.0-10.0)
[2021-07-25] MEDS: LEVOTHYROXINE NA 75 MCG TABLET (FP) PO SCH (06:52)
[2021-07-25] MEDS: CALCIUM 500MG/VIT-D 200 UNITS COMBO TABLET (FP) PO SCH (10:20)
[2021-07-25] MEDS: PANTOPRAZOLE 40 MG TABLET PO SCH (10:20)
[2021-07-25] MEDS: SODIUM BICARBONATE 650 MG TABLET PO SCH ×2 (10:20→21:00)
[2021-07-25] MEDS: FAMOTIDINE 20 MG TABLET PO SCH (10:20)
[2021-07-25] MEDS: metoPROLOL SUCCINATE 25 MG TAB.SR.24H (FP) PO SCH (10:20)
[2021-07-26] MEDS: LEVOTHYROXINE NA 75 MCG TABLET (FP) PO SCH (06:24)
[2021-07-26] MEDS: FAMOTIDINE 20 MG TABLET PO SCH (11:27)
[2021-07-26] MEDS: PANTOPRAZOLE 40 MG TABLET PO SCH (11:27)
[2021-07-26] MEDS: CALCIUM 500MG/VIT-D 200 UNITS COMBO TABLET (FP) PO SCH (11:27)
[2021-07-26] MEDS: SODIUM BICARBONATE 650 MG TABLET PO SCH ×2 (11:27→21:41)
[2021-07-26] MEDS: metoPROLOL SUCCINATE 25 MG TAB.SR.24H (FP) PO SCH (11:27)
[2021-07-26] MEDS: ACETAMINOPHEN 325 MG TABLET (FP) PO PRN (15:58)
[2021-07-27] MEDS: LEVOTHYROXINE NA 75 MCG TABLET (FP) PO SCH (06:31)
[2021-07-27] MEDS: CYANOCOBALAMIN 1,000 MCG TABLET (FP) PO SCH (10:28)
[2021-07-27] MEDS: metoPROLOL SUCCINATE 25 MG TAB.SR.24H (FP) PO SCH (10:29)
[2021-07-27] MEDS: CALCIUM 500MG/VIT-D 200 UNITS COMBO TABLET (FP) PO SCH (10:29)
[2021-07-27] MEDS: FAMOTIDINE 20 MG TABLET PO SCH (10:29)
[2021-07-27] MEDS: PANTOPRAZOLE 40 MG TABLET PO SCH (10:29)
[2021-07-27] MEDS: SODIUM BICARBONATE 650 MG TABLET PO SCH ×2 (10:29→21:47)
[2021-07-27 14:46] LABS: HEMOGLOBIN 8.7 GM/dL (10.7-15.3); MCH 30.2 pg (25.7-33.7); MCHC 33.3 g/dl (32.0-36.0); MEAN CELL VOLUME 90.5 fl (80-96); MEAN PLT VOLUME 9.2 fl (7.5-11.1); PLATELET COUNT 243 10^3/uL (134-434); RBC 2.87 M/mm3 (3.60-5.2); RDW 16.6 % (11.6-15.6); WHITE BLOOD COUNT 5.4 K/mm3 (4.0-10.0)
[2021-07-27 15:13] LABS: BLOOD UREA NITROGEN 14.2 mg/dL (7-18)
[2021-07-27 15:16] LABS: CREATININE 1.1 mg/dL (0.55-1.3)
[2021-07-28] MEDS: LEVOTHYROXINE NA 75 MCG TABLET (FP) PO SCH (06:06)
[2021-07-28] MEDS: metoPROLOL SUCCINATE 25 MG TAB.SR.24H (FP) PO SCH (10:57)
[2021-07-28] MEDS: PANTOPRAZOLE 40 MG TABLET PO SCH (10:58)
[2021-07-28] MEDS: SODIUM BICARBONATE 650 MG TABLET PO SCH ×2 (10:58→22:21)
[2021-07-28] MEDS: CALCIUM 500MG/VIT-D 200 UNITS COMBO TABLET (FP) PO SCH (10:58)
[2021-07-28] MEDS: FAMOTIDINE 20 MG TABLET PO SCH (10:58)
[2021-07-28] MEDS ORDERED: MELATONIN 5 MG TABLETS PO PRN (17:30)
[2021-07-29] MEDS: LEVOTHYROXINE NA 75 MCG TABLET (FP) PO SCH (06:34)
[2021-07-29 09:06] LABS: HEMATOCRIT 24.9 % (32.4-45.2); HEMOGLOBIN 8.2 GM/dL (10.7-15.3); MCH 29.8 pg (25.7-33.7); MCHC 32.9 g/dl (32.0-36.0); MEAN CELL VOLUME 90.8 fl (80-96); MEAN PLT VOLUME 9.7 fl (7.5-11.1); PLATELET COUNT 242 10^3/uL (134-434); RBC 2.74 M/mm3 (3.60-5.2); RDW 16.6 % (11.6-15.6); WHITE BLOOD COUNT 5.6 K/mm3 (4.0-10.0)
[2021-07-29] MEDS: FAMOTIDINE 20 MG TABLET PO SCH (12:24)
[2021-07-29] MEDS: SODIUM BICARBONATE 650 MG TABLET PO SCH ×2 (12:24→22:10)
[2021-07-29] MEDS: CALCIUM 500MG/VIT-D 200 UNITS COMBO TABLET (FP) PO SCH (12:24)
[2021-07-29] MEDS: metoPROLOL SUCCINATE 25 MG TAB.SR.24H (FP) PO SCH (12:24)
[2021-07-29] MEDS: PANTOPRAZOLE 40 MG TABLET PO SCH (12:24)
[2021-07-30] MEDS: LEVOTHYROXINE NA 75 MCG TABLET (FP) PO SCH (06:27)
[2021-07-30] MEDS: SODIUM BICARBONATE 650 MG TABLET PO SCH ×2 (10:30→21:27)
[2021-07-30] MEDS: metoPROLOL SUCCINATE 25 MG TAB.SR.24H (FP) PO SCH (10:30)
[2021-07-30] MEDS: CALCIUM 500MG/VIT-D 200 UNITS COMBO TABLET (FP) PO SCH (10:30)
[2021-07-30] MEDS: PANTOPRAZOLE 40 MG TABLET PO SCH (10:30)
[2021-07-30] MEDS: FAMOTIDINE 20 MG TABLET PO SCH (10:30)
[2021-07-30] MEDS: CYANOCOBALAMIN 1,000 MCG TABLET (FP) PO SCH (10:30)
[2021-07-31] MEDS: ACETAMINOPHEN 325 MG TABLET (FP) PO PRN (02:23)
[2021-07-31] MEDS: LEVOTHYROXINE NA 75 MCG TABLET (FP) PO SCH (06:11)
[2021-07-31] MEDS: SODIUM BICARBONATE 650 MG TABLET PO SCH ×2 (10:58→22:14)
[2021-07-31] MEDS: metoPROLOL SUCCINATE 25 MG TAB.SR.24H (FP) PO SCH (10:58)
[2021-07-31] MEDS: CALCIUM 500MG/VIT-D 200 UNITS COMBO TABLET (FP) PO SCH (10:58)
[2021-07-31] MEDS: PANTOPRAZOLE 40 MG TABLET PO SCH (10:58)
[2021-07-31] MEDS: FAMOTIDINE 20 MG TABLET PO SCH (10:58)
[2021-07-31 13:10] LABS: BASO % 0.7 % (0-2.0); EOS % 1.3 % (0-4.5); HEMOGLOBIN 8.8 GM/dL (10.7-15.3); LYMPH % 33.2 % (8-40); MCH 30.6 pg (25.7-33.7); MCHC 33.8 g/dl (32.0-36.0); MEAN CELL VOLUME 90.3 fl (80-96); MEAN PLT VOLUME 9.4 fl (7.5-11.1); MONO % 12.7 % (3.8-10.2); NEUT % 52.1 % (42.8-82.8); PLATELET COUNT 238 10^3/uL (134-434); RBC 2.87 M/mm3 (3.60-5.2); RDW 16.5 % (11.6-15.6); WHITE BLOOD COUNT 4.7 K/mm3 (4.0-10.0)
[2021-08-01] MEDS: LEVOTHYROXINE NA 75 MCG TABLET (FP) PO SCH (06:15)
[2021-08-01 08:07] VITALS: TEMP 98.1
[2021-08-01] MEDS: metoPROLOL SUCCINATE 25 MG TAB.SR.24H (FP) PO SCH (09:20)
[2021-08-01] MEDS: FAMOTIDINE 20 MG TABLET PO SCH (09:20)
[2021-08-01] MEDS: SODIUM BICARBONATE 650 MG TABLET PO SCH (09:20)
[2021-08-01] MEDS: CALCIUM 500MG/VIT-D 200 UNITS COMBO TABLET (FP) PO SCH (09:20)
[2021-08-01] MEDS: PANTOPRAZOLE 40 MG TABLET PO SCH (09:20)
[2021-08-01 17:53] VITALS: BP 143/71; PULSE 63
== END 2021-08-01 18:48 | disposition short-term general hospital (02) | DRG 378 ==
LOC: JER 17:09 → JERBED 18:46 → J8W 22:23
PROVIDERS: ADMIT Internal Medicine; ATTEND Family Medicine
PROC: 30233N1 Transfusion of Nonautologous Red Blood Cells into Peripheral Vein, Percutaneous Approach (ICD-10-PCS; principal; 2021-07-16)
DX: K92.2 Gastrointestinal hemorrhage, unspecified (principal); D68.9 Coagulation defect, unspecified; D62 Acute posthemorrhagic anemia; I35.0 Nonrheumatic aortic (valve) stenosis; E03.9 Hypothyroidism, unspecified; N18.30 Chronic kidney disease, stage 3 unspecified; I12.9 Hypertensive chronic kidney disease with stage 1 through stage 4 chronic kidney disease, or unspecified chronic kidney disease; I10 Essential (primary) hypertension; K21.9 Gastro-esophageal reflux disease without esophagitis
CPT/HCPCS: 36415; 36430; 71045-TC-FY; 80048; 80053; 82550; 83605; 83735; 84100; 84443; 84484; 85025; 85027; 85610; 85730; 86850; 86900; 86901; 86922; 87081; 87804; 87807; 93005; 93010; 99285-25; C9803; J0131; P9058; U0003; U0005